=== PATIENT | female | born 1960 | race Caucasian/White ===

== ENCOUNTER 2016-12-01 09:59 | Day surgery (SDC) | payer BC ==
[~2016-12-01 09:59] MED LIST: RINGERS SOLUTION,LACTATED 1,000 ML IV PRN; ceFAZolin SODIUM 1 GM VIAL IV PRN
[2016-12-01] MEDS ORDERED: RINGERS SOLUTION,LACTATED 1,000 ML IV ONE ×2 (10:34→12:30)
[2016-12-01] MEDS ORDERED: BUPIVACAINE HCL 50 ML VIAL IJ ONE ×2 (12:20)
--- NOTE | 2016-12-01 13:35 | OR ---
Operative Report - Dictated Report Narrative: Date: 12/01/2016 Surgeon: Jose Carlos Russell M.D. Core Java Software Engineer: Vito Malloy PA-C Preoperative diagnosis: Right Thumb carpometacarpal arthrosis Postoperative diagnosis: Right Thumb carpometacarpal arthrosis Operation: Right Thumb resection suspension arthroplasty of the carpo- metacarpal joint Retained implants: 0.45 smooth Candice wire pin cap Anesthesia: General plus local Tourniquet time: 55 Minutes at 250 mmHg Estimated blood loss: Minimal Drains: None Specimen: Bone for disposal Complications: None Indications: Mrs. Turcios is a 56-year-old female who is seen in the clinic for complaints of right thumb pain. That failed conservative measures including but not limited to injections, medications, splinting, activity modification, and or therapy. Radiographs revealed advanced arthrosis of the thumb carpometacarpal joint and they wish to proceed with surgical treatment. The risks, benefits, and alternatives were discussed in the clinic. The risks of , blood clots, bleeding, infection, damage to nerve, tendon, or blood vessels, stiffness, weakness, persistent pain, deformity, and need for additional procedures were reviewed. She wished to proceed with the procedure. Procedure: After marking the correct extremity in the preoperative holding area, the patient was taken to the operating room and timeout was performed. IV antibiotics consisting of Ancef were administered. A general anesthetic was induced by anesthesia. A well-padded tourniquet was applied to the upper arm. The surgical arm was then prepped and draped in a standard sterile fashion. After exsanguinating the extremity, the tourniquet was inflated to 250 mmHg. A longitudinal incision approximately 6 cm in length was made centered over the dorsal aspect of the thumb carpometacarpal joint. This was bluntly dissected down to the subcutaneous tissue protecting the dorsal branch of the radial nerve and any other cutaneous nerves and vessels encountered. A capsulotomy and periosteal elevation was performed between the extensor pollicis brevis and extensor pollicis longus. The base of the thumb metacarpal as well as the trapezium were exposed and the soft tissues and capsule were elevated off this. Utilizing a oscillating saw, approximately 5 mm of the base of the thumb metacarpal was removed including the arthritic joint surface with the marginal osteophytes. The trapezium was then quartered and excised using a combination of ronguer and [place] blade. Care was taken to protect the deep flexor carpi radialis tendon. Once the trapezium was fully excised the flexor carpi radialis tendon was dissected down to its insertion on the index metacarpal and tagged with an umbilical tape. Attention was then turned to the procurement of the flexor carpal radialis tendon over the volar forearm. 2 small transverse incisions were made at the distal and musculotendinous portions of the flexor carpi radialis tendon. Blunt dissection was carried through subcutaneous tissue down to the flexor tendon. The flexor carpal radius tendon was tagged distally and then transected at the muscle tendinous junction proximally and mobilized into the thumb wound. The muscle attached to the tendon was then removed using a scalpel. The tendon was wrapped in a moist Ray-Lakshmi sponge. A bur was utilized in order to make a tunnel through the base of the thumb metacarpal approximately a centimeter distal exiting over the volar and ulnar aspect of the thumb metacarpal in line with the thumb nail. This was enlarged to accommodate the tendon and the bony edges were burred to make this a smooth return of the tendon on itself. The tendon was then passed through the tunnel without any complications. A 0.45 smooth Candice wire was placed through the thumb metacarpal into the index metacarpal using mini C-arm to confirm placement of the thumb in a pinch commercial cleaner position suspended at the level of the index metacarpal. 4-0 Ethibond suture was placed deep in the capsule in order to stabilize the tendon graft. 4-0 Ethibond was utilized in order to repair the tendon back to itself as well as to the periosteum as it exited the tunnel. The tendon was then rolled into an anchovy orientation and secured with 4-0 Ethibond suture. 2 Ronen needles were placed in order to pass the previously placed 4-0 Ethibond which was deep in the resected trapezium area and passed through the tendon in order to secure the tendon into the base of the wound. This allowed for filling of the defect from the prior removed trapezium. The wounds were then thoroughly irrigated. Tourniquet was deflated and hemostasis was obtained with bipolar cautery. 0.5% Marcaine without epinephrine was infused in the incision sites as well as into the carpal metacarpal joint. 4-0 nylon was used to close the tendon procurement site. 4-0 Vicryl was utilized in order to repair the joint capsule and periosteum onto the tendon graft. Subcutaneous 4-0 Vicryl and 4-0 nylon on the skin were utilized in order to close the thumb wound. The K wire was bent and capped outside the skin. Xeroform, 4 x 4's, soft roll, and a well-padded thumb spica splint were applied and the patient was awoken and transferred to postanesthesia care unit in stable condition. All sponge, needle, sharp, and instrument counts were correct prior to closing the wounds.
[2016-12-01 15:08] VITALS: BP 112/59
== END 2016-12-01 10:00 | disposition home or self-care (01) ==
LOC: AMB 09:59
PROVIDERS: ATTEND Orthopaedic Surgery
PROC: 0RU Upper Joints, Supplement (ICD-10-PCS; principal; 2016-12-01 12:45)
DX: M18.11 Unilateral primary osteoarthritis of first carpometacarpal joint, right hand (principal); F17.200 Nicotine dependence, unspecified, uncomplicated; Z68.22 Body mass index [BMI] 22.0-22.9, adult